=== PATIENT | male | born 1975 | race Caucasian/White ===

== ENCOUNTER → 2016-10-04 | Outpatient (CLI) | payer BC ==
[~2016-10-04] MED LIST: HYDROCODONE BIT1 T11 PO; METFORMIN XR500 MG PO
[2016-10-04 20:49] LABS: HEMOGLOBIN A1c 7.6 % (4.8-5.6)
== END | disposition home or self-care (01) ==
LOC: LAB 20:05
PROVIDERS: Internal Medicine
DX: E11.9 Type 2 diabetes mellitus without complications (principal)

== ENCOUNTER → 2017-06-27 | Outpatient (CLI) | payer BC ==
[2017-06-27 20:29] LABS: POTASSIUM 4.2 mmol/L (3.5-5.1)
== END | disposition home or self-care (01) ==
LOC: LAB 19:20
PROVIDERS: Internal Medicine
DX: E11.9 Type 2 diabetes mellitus without complications (principal)

== ENCOUNTER 2018-01-07 21:20 | Emergency (ER) | payer BC ==
[~2018-01-07] VITALS: Ht 182.8 cm; Wt 102.5 kg
== END 2018-01-07 22:53 | disposition home or self-care (01) ==
LOC: ED 21:20
DX: Z79.84 Long term (current) use of oral hypoglycemic drugs (principal); M25.462 Effusion, left knee; E11.9 Type 2 diabetes mellitus without complications

== ENCOUNTER → 2018-05-29 | Outpatient (CLI) | payer BC | END | disposition home or self-care (01) | LOC: LAB 19:41 | DX: E11.9 Type 2 diabetes mellitus without complications (principal) ==

== ENCOUNTER → 2019-01-22 | Outpatient (CLI) | payer BC | END | disposition home or self-care (01) | LOC: LAB 21:46 | DX: E11.9 Type 2 diabetes mellitus without complications (principal) ==

== ENCOUNTER → 2020-12-24 | Outpatient (CLI) | payer BC | END | disposition home or self-care (01) | LOC: COVID19 18:33 | PROVIDERS: ATTEND Student in an Organized Health Care Education/Training Program | DX: Z11.52 Encounter for screening for COVID-19 (principal) ==